=== PATIENT | female | born 1995 | race Caucasian/White ===

== ENCOUNTER 2018-04-30 14:05 | Outpatient (CLI) | payer SELFPAY ==
[2018-04-30 15:28] LABS: HCG Quant, Pregnancy 35 mIU/mL (1-3)
[2018-05-02 09:43] LABS: Prolactin 11.7 ng/ml
[2018-05-02 13:04] LABS: TSH, Sensitive 1.6 mIU/L (0.3-4.2)
== END 2018-04-30 14:25 ==
PROVIDERS: Visit Provider Obstetrics & Gynecology
DX: N91.5 Oligomenorrhea, unspecified (principal)
CPT/HCPCS: 36415; 84146; 84443; 84702

== ENCOUNTER 2018-05-06 11:55 | Outpatient (CLI) | payer SELFPAY ==
[2018-05-06 13:07] LABS: HCG Quant, Pregnancy 736 mIU/mL (1-3)
== END 2018-05-06 12:15 ==
PROVIDERS: PCP Family Medicine; Visit Provider Obstetrics & Gynecology
DX: N91.5 Oligomenorrhea, unspecified (principal)
CPT/HCPCS: 36415; 84702

== ENCOUNTER 2018-06-17 15:42 | Outpatient (REF) | payer SELFPAY ==
[2018-06-17 17:20] LABS: *AMPHETAMINES SCREEN URINE Negative (Negative); *BARBITURATES SCREEN URINE Negative (Negative); *BENZODIAZEPINES SCREEN URINE Negative (Negative); Cannabinoids THC Negative (Negative); Cocaine Screen,Urine Negative (Negative); METHADONE URINE SCREEN Negative (Negative); OPIATES URINE SCREEN Negative (Negative)
[2018-06-17 17:21] LABS: Tricyclic Antidepressants Negative (Negative)
[2018-06-21 11:57] LABS: Buprenorphine Negative; Norbuprenorphine Negative
== END 2018-06-17 16:02 ==
LOC: LBN 15:42
PROVIDERS: PCP Family Medicine; Visit Provider Advanced Practice Midwife
DX: Z34.91 Encounter for supervision of normal pregnancy, unspecified, first trimester (principal)
CPT/HCPCS: 80307; 87086

== ENCOUNTER 2018-07-15 14:11 | Outpatient (REF) | payer SELFPAY ==
[2018-07-16 15:01] LABS: Chlamydia Result Negative; GC Result Negative; Specimen Description URINE
== END 2018-07-15 14:31 ==
LOC: LBN 14:11
PROVIDERS: PCP Family Medicine; Visit Provider Advanced Practice Midwife
DX: Z34.91 Encounter for supervision of normal pregnancy, unspecified, first trimester (principal); Z11.3 Encounter for screening for infections with a predominantly sexual mode of transmission
CPT/HCPCS: 87491; 87591

== ENCOUNTER 2018-07-15 15:02 | Outpatient (CLI) | payer SELFPAY ==
[2018-07-15 15:29] LABS: Abs Immature Grans 0.03 k/cumm (0.0-0.09); Absolute Basophil Count 0.02 k/cumm (0.0-0.2); Absolute Eosinophil Count 0.05 k/cumm (0.0-0.7); Absolute Lymphocyte Count 1.94 k/cumm (1.2-3.4); Absolute Monocyte Count 0.81 k/cumm (0.11-0.7); Absolute Neutrophil Count 6.83 k/cumm (1.2-6.7); Basophils % 0.2; Eosinophils % 0.5; HCT 34.7 % (36.0-46.0); HGB 11.9 g/dL (12.0-15.5); Immature Grans % 0.3; Mean Corp. HGB Concentration 34.3 g/dL (32.0-36.0); Mean Corpuscular Hemoglobin 31.2 pg (27.0-33.0); Mean Corpuscular Volume 91.1 fL (80-95); Mean Platelet Volume 9.4 fL (8.0-11.0); Monocytes % 8.4; Neutrophils % 70.6; Platelet Count 342 x1000/uL (130-400); RBC 3.81 m/cumm (4.00-5.20); RBC Distribution Width 12.1 % (11.7-14.6); White Blood Cell Count 9.68 k/cumm (4.4-10.8)
[2018-07-15 15:57] LABS: Glucose,1 Hr (Glucola) 85 mg/dL (80-140)
[2018-07-17 09:36] LABS: Hepatitis B Surface Ag Negative (NEGAT)
[2018-07-17 09:51] LABS: HIV-1/2 Ag & Ab Screen Negative (NEGAT)
[2018-07-17 10:14] LABS: Hepatitis C Ab w Rflx HCV PCR Negative (NEGAT)
[2018-07-17 12:03] LABS: Syphilis Serology (RPR) Negative (Negative)
[2018-07-17 12:44] LABS: Rubella IgG Ab (UVM) Positive
[2018-07-17 13:12] LABS: Varicella IgG Antibody Equivocal
== END 2018-07-15 15:22 ==
PROVIDERS: PCP Family Medicine; Visit Provider Advanced Practice Midwife
DX: Z34.91 Encounter for supervision of normal pregnancy, unspecified, first trimester (principal); Z11.4 Encounter for screening for human immunodeficiency virus [HIV]; Z11.59 Encounter for screening for other viral diseases; Z01.84 Encounter for antibody response examination
CPT/HCPCS: 36415; 80055; 82950; 86787; 86803; 86850; 86900; 86901; 87340; 87389; 86592; 86762

== ENCOUNTER 2018-08-12 01:41 | Outpatient (CLI) | payer SELFPAY ==
--- NOTE | 2018-08-12 14:11 | DI.US_ITS ---
Many abnormalities cannot be diagnosed. A normal exam does not exclude a congenital anomaly. Radiology No. LMP: Exam Date: 08/12/18 [facility] wks days on EDC ([facility]) 01/12/19 Confirmed: HISTORY: SURVEY, Z34.90 PREDICTED GESTATIONAL AGE NUMBER 18.1 weeks with a range of 17.1 week to 19.1 weeks. 1 Determined by__[id number]___LMP___HISTORY Info. pertaining to PER PATIENT fetus # PLACENTA PRESENTATION Grade I Cephalic___ Anterior_X__Posterior___ Breech____ Right Left Transverse(head right___ Fundal___Low-lying___Previa___ Transverse(head left___ Varying___X___ BIOMETRY AMNIOTIC FLUID BPD: 41 mm 18.4 weeks Normal HC: 156 mm 18.4 weeks AC: 142 mm 18.4 weeks FL: 29 mm 18.6 weeks AMNIOTIC FLUID INDEX >26 WK CRL: mm weeks Cisterna Magna: 5 mm CI: 78 RUQ: LUQ Cerebellum: 1.96 cm EFW: 277 grams 95th Percentile RLQ: LLQ Total: cms Composite AGE= 18.6 wks EDC by US___01/07/19 BIOPHYSICAL PROFILE ANATOMY IDENTIFIED SCORE 0/2 Heart: 4-Chamber__X_Rate:BPM___155__ LVOT: X____ RVOT:____X____ Amniotic Fluid(>2cms)____ Stomach: X__ Kidneys:____X___ Respirations (>30 secs) Bladder: X___ Post. Fossa:__X Body Flex/Extension 3 vessel cord:___X____Ventricles:____X cord insertion:___X__ Lips:_X___ Extremity Flex/Extension spinal morphology:____X____Nose:X Total Score= Palate: X_ NS=not seen Routine examination was performed. There is a single living intrauterine gestation. Estimated sonographic age is 18 weeks 6 days. The fetus was in various positions. heart rate is 155 beats per minute. The AP diameter of the left renal pelvis is 4.1 mm. The right renal pelvis is less than 4 mm. in AP diameter. No other abnormalities are appreciated. The placenta is anterior without evidence of previous. The amniotic fluid visually appears within normal limits. IMPRESSION: Single living intrauterine gestation. Sonographic age is 18 weeks 6 days The renal pelvic diameter is 4.1 mm. Follow up is suggested for re-evaluation of the kidneys in 5-7 weeks.
== END 2018-08-12 02:01 ==
PROVIDERS: PCP Family Medicine; Visit Provider Advanced Practice Midwife
DX: Z34.92 Encounter for supervision of normal pregnancy, unspecified, second trimester (principal)
CPT/HCPCS: 76805

== ENCOUNTER 2018-10-14 00:20 | Outpatient (CLI) | payer SELFPAY ==
--- NOTE | 2018-10-14 10:52 | DI.US_ITS ---
Predicted Gestational Age: Indication/History:PREVIOUS KIDNEY ASYMMETRY 27.1 Wks Range: 26.1 to 28.1 Prior US done on: Determined by: First US LMP History EDC by prior US: 01/12/19 For multiple gestations: Baby PLACENTA: Grade: I-II Location: Anterior X Posterior PRESENTATION: RT LT X LOW LYING PREVIA Cephalic X Trans (Head RT LT ) Varied Breech BIOMETRY: Anatomy Identified: BPD: mm wks 4 chamber Heart Heart Rate 168 BPM HC: mm wks LVOT Post Fossa AC: mm wks RVOT Ventricles FL: mm wks Stomach Nose Bladder Lips Cisterna Magna: mm CI: Kidneys X Palate Cerebellum: mm 3 vessel cord Spine EFW: grms % Cord Insertion NS= not seen Composite Age (US) wks Many abnormalities cannot be diagnosed. A normal exam does not exclude congenital abnormality. EDC by US Amniotic Fluid Index: Normal COMMENTS: RUQ: LUQ: RLQ: LLQ: Total: cm Biophysical Profile: Score 0/2 KOKO (>2cm) Respirations (>30 sec) Body flexion/extension Extremity flexion/extension TOTAL SCORE Limited OB ultrasound was performed. The exam is follow up from 08/12/18 to evaluate dilatation of the renal collecting systems. There is no evidence of dilatation of the collecting systems on the current exam. The AP dimension of the right renal pelvis is 3 mm. and the dimension of the renal pelvis on the left is 4 mm. There is no perinephric collection. The bladder is unremarkable. The amniotic fluid index appears visually normal. IMPRESSION: No evidence of hydronephrosis.
== END 2018-10-14 00:40 ==
PROVIDERS: PCP Family Medicine; Visit Provider Advanced Practice Midwife
DX: Z34.90 Encounter for supervision of normal pregnancy, unspecified, unspecified trimester (principal)
CPT/HCPCS: 76815

== ENCOUNTER 2018-10-30 13:00 | Outpatient (CLI) | payer MEDICAID, SELFPAY ==
[2018-10-30 13:03] LABS: HCT 35.4 % (36.0-46.0); HGB 12.1 g/dL (12.0-15.5); Mean Corp. HGB Concentration 34.2 g/dL (32.0-36.0); Mean Corpuscular Hemoglobin 31.3 pg (27.0-33.0); Mean Corpuscular Volume 91.7 fL (80-95); Mean Platelet Volume 9.5 fL (8.0-11.0); Platelet Count 352 x1000/uL (130-400); RBC 3.86 m/cumm (4.00-5.20); RBC Distribution Width 12.2 % (11.7-14.6); White Blood Cell Count 11.75 k/cumm (4.4-10.8)
[2018-10-30 13:11] LABS: Glucose,1 Hr (Glucola) 114 mg/dL (80-140)
== END 2018-10-30 13:20 ==
PROVIDERS: PCP Family Medicine; Visit Provider Advanced Practice Midwife
DX: Z34.93 Encounter for supervision of normal pregnancy, unspecified, third trimester (principal)
CPT/HCPCS: 36415; 82950; 85027

== ENCOUNTER 2018-12-18 16:03 | Outpatient (REF) | payer MEDICAID, SELFPAY ==
[2018-12-18 19:50] LABS: *AMPHETAMINES SCREEN URINE Negative (Negative); *BARBITURATES SCREEN URINE Negative (Negative); *BENZODIAZEPINES SCREEN URINE Negative (Negative); Cannabinoids THC Negative (Negative); Cocaine Screen,Urine Negative (Negative); METHADONE URINE SCREEN Negative (Negative); OPIATES URINE SCREEN Negative (Negative)
[2018-12-18 19:57] LABS: Tricyclic Antidepressants Negative (Negative)
[2018-12-25 09:36] LABS: Buprenorphine Negative; Norbuprenorphine Negative
== END 2018-12-18 16:23 ==
LOC: LBN 16:03
PROVIDERS: PCP Family Medicine; Visit Provider Advanced Practice Midwife
DX: Z34.93 Encounter for supervision of normal pregnancy, unspecified, third trimester (principal); Z36.85 Encounter for antenatal screening for Streptococcus B
CPT/HCPCS: 80307; 87081

== ENCOUNTER 2019-01-02 14:44 | Outpatient (CLI) | payer MEDICAID, SELFPAY ==
[2019-01-02 15:20] LABS: HGB 11.6 g/dL (12.0-15.5); Mean Corp. HGB Concentration 34.1 g/dL (32.0-36.0); Mean Corpuscular Hemoglobin 31.3 pg (27.0-33.0); Mean Corpuscular Volume 91.6 fL (80-95); Mean Platelet Volume 10.5 fL (8.0-11.0); Platelet Count 292 x1000/uL (130-400); RBC 3.71 m/cumm (4.00-5.20); RBC Distribution Width 12.9 % (11.7-14.6); White Blood Cell Count 10.92 k/cumm (4.4-10.8)
[2019-01-02 16:24] LABS: PROTEIN 29.2 mg/dL
[2019-01-02 16:31] LABS: COMMENT (LAB VIEW ONLY) 111.02 mg/dL; Prot/Crea Ur Ratio 0.26
[2019-01-02 16:31] LABS: ALT 15 U/L (12-78); AST 11 U/L (15-37); Albumin 2.6 g/dL (3.4-5.0); Alkaline Phosphatase 186 U/L (46-116); Anion Gap 10.2 mmol/L (3-11); BUN 8 mg/dL (7-18); Bilirubin, Total 0.1 mg/dL (0.2-1.0); CO2 22.8 mmol/L (21.0-32.0); CREATININE 0.63 mg/dL (0.55-1.02); Calcium 9.2 mg/dL (8.5-10.1); Chloride 105 mmol/L (98-107); Glucose 75 mg/dL (70-100); Sodium 138 mmol/L (136-145); Total Protein 6.2 g/dL (6.4-8.2); Uric Acid 5.9 mg/dL (2.6-6.0)
[2019-01-03 14:13] LABS: Chlamydia Result Negative; GC Result Negative; Specimen Description URINE
== END 2019-01-02 15:04 ==
PROVIDERS: PCP Family Medicine; Visit Provider Advanced Practice Midwife
DX: Z34.90 Encounter for supervision of normal pregnancy, unspecified, unspecified trimester (principal); O14.90 Unspecified pre-eclampsia, unspecified trimester; Z11.3 Encounter for screening for infections with a predominantly sexual mode of transmission
CPT/HCPCS: 36415; 80053; 85027; 87491; 87591; 82565; 84156; 84550

== ENCOUNTER 2019-01-06 11:47 | Observation (INO) | payer MEDICAID, SELFPAY ==
[2019-01-06 12:31] LABS: HCT 34.7 % (36.0-46.0); HGB 11.8 g/dL (12.0-15.5); Mean Corpuscular Hemoglobin 31.4 pg (27.0-33.0); Mean Corpuscular Volume 92.3 fL (80-95); Mean Platelet Volume 10.9 fL (8.0-11.0); Platelet Count 269 x1000/uL (130-400); RBC 3.76 m/cumm (4.00-5.20); RBC Distribution Width 13.1 % (11.7-14.6); White Blood Cell Count 9.21 k/cumm (4.4-10.8)
[2019-01-06 12:49] LABS: PROTEIN 31.8 mg/dL
[2019-01-06 12:54] LABS: ALT 13 U/L (12-78); AST 8 U/L (15-37); Albumin 2.2 g/dL (3.4-5.0); Alkaline Phosphatase 170 U/L (46-116); Anion Gap 8.9 mmol/L (3-11); BUN 13 mg/dL (7-18); Bilirubin, Total 0.1 mg/dL (0.2-1.0); CO2 24.1 mmol/L (21.0-32.0); CREATININE 0.73 mg/dL (0.55-1.02); Calcium 8.7 mg/dL (8.5-10.1); Chloride 106 mmol/L (98-107); Glucose 83 mg/dL (70-100); Sodium 139 mmol/L (136-145); Total Protein 6.1 g/dL (6.4-8.2); Uric Acid 5.9 mg/dL (2.6-6.0)
[2019-01-06 13:14] LABS: COMMENT (LAB VIEW ONLY) 94.42 mg/dL; Prot/Crea Ur Ratio 0.33
== END 2019-01-06 12:35 | disposition home or self-care (01) ==
LOC: OBS 13:43
PROVIDERS: Admitting Provider Advanced Practice Midwife; PCP Family Medicine; Visit Provider Advanced Practice Midwife
DX: Z3A.39 39 weeks gestation of pregnancy; O26.893 Other specified pregnancy related conditions, third trimester; R03.0 Elevated blood-pressure reading, without diagnosis of hypertension
CPT/HCPCS: 36415; 76815; 80053; 85027; 99211; 59025; 76819; 82565; 84156; 84550; G0378

== ENCOUNTER 2019-01-06 13:40 | Outpatient (CLI) | payer MEDICAID, SELFPAY ==
--- NOTE | 2019-01-06 14:45 | DI.US_ITS ---
Predicted Gestational Age: Indication/History: ELEVATED BLOOD PRESSURE, Z34.90 39.1 Wks Range: 38.1 to 40.1 Prior US done on: Determined by: First US LMP History EDC by prior US: 01/12/19 For multiple gestations: Baby PLACENTA: Grade: II-III Location: Anterior X Posterior PRESENTATION: RT LT LOW LYING PREVIA Cephalic X Trans (Head RT LT ) Varied Breech BIOMETRY: Anatomy Identified: BPD: mm wks 4 chamber Heart Heart Rate 140 BPM HC: mm wks LVOT Post Fossa AC: mm wks RVOT Ventricles FL: mm wks Stomach Nose Bladder Lips Cisterna Magna: mm CI: Kidneys Palate Cerebellum: mm 3 vessel cord Spine EFW: grms % Cord Insertion NS= not seen Composite Age (US) wks Many abnormalities cannot be diagnosed. A normal exam does not exclude congenital abnormality. EDC by US Amniotic Fluid Index: [place] Normal Polyhydramnios COMMENTS: RUQ: LUQ: RLQ: LLQ: Total: cm Biophysical Profile: Score 0/2 KOKO (>2cm) ____2/2____ Respirations (>30 sec) ____2/2___ Body flexion/extension ___ 0/2 Extremity flexion/extension ____0/2____ TOTAL SCORE __4/8____ The fetus is in cephalic position. The placenta is anterior. Biophysical profile score is 4 out of 8. There was no body flexion or extension or extremity flexion and extension during the exam.
== END 2019-01-06 14:00 ==
PROVIDERS: PCP Family Medicine; Visit Provider Advanced Practice Midwife
DX: R03.0 Elevated blood-pressure reading, without diagnosis of hypertension (principal); Z34.93 Encounter for supervision of normal pregnancy, unspecified, third trimester; Z36.89 Encounter for other specified antenatal screening
CPT/HCPCS: 76815; 76819

== ENCOUNTER 2019-01-06 20:01 | Inpatient (IN) | payer MEDICAID, SELFPAY ==
[2019-01-06 20:36] LABS: HGB 12.1 g/dL (12.0-15.5); Mean Corp. HGB Concentration 34.6 g/dL (32.0-36.0); Mean Corpuscular Hemoglobin 31.6 pg (27.0-33.0); Mean Corpuscular Volume 91.4 fL (80-95); Mean Platelet Volume 10.7 fL (8.0-11.0); Platelet Count 299 x1000/uL (130-400); RBC 3.83 m/cumm (4.00-5.20); RBC Distribution Width 12.9 % (11.7-14.6); White Blood Cell Count 11.45 k/cumm (4.4-10.8)
[2019-01-06] MEDS: Dinoprostone-CERVICAL 10 MG VSUPP VG (22:26)
[2019-01-07] MEDS: Lactated Ringers 1,000 ML 200 ML IV ×2 (14:13→23:40)
[2019-01-07] MEDS: Normal Saline Flush 10 ML SYR IVP ×2 (14:18→17:21)
[2019-01-08] MEDS: Penicillin G POT. 3,000,000 UNITS in Normal Saline 50 ML 100 UNITS IVPB ×4 (05:05→17:00)
[2019-01-08] MEDS: Lactated Ringers 1,000 ML 100 ML IV (07:30)
[2019-01-08 09:00] LABS: HGB 12.3 g/dL (12.0-15.5); Mean Corp. HGB Concentration 34.2 g/dL (32.0-36.0); Mean Corpuscular Hemoglobin 31.3 pg (27.0-33.0); Mean Corpuscular Volume 91.6 fL (80-95); Mean Platelet Volume 10.6 fL (8.0-11.0); Platelet Count 274 x1000/uL (130-400); RBC 3.93 m/cumm (4.00-5.20); RBC Distribution Width 13.1 % (11.7-14.6); White Blood Cell Count 13.62 k/cumm (4.4-10.8)
[2019-01-08 09:17] LABS: ALT 12 U/L (12-78); AST 8 U/L (15-37); Albumin 2.3 g/dL (3.4-5.0); Alkaline Phosphatase 178 U/L (46-116); Anion Gap 10.1 mmol/L (3-11); BUN 11 mg/dL (7-18); Bilirubin, Total 0.2 mg/dL (0.2-1.0); CO2 22.9 mmol/L (21.0-32.0); Calcium 8.6 mg/dL (8.5-10.1); Chloride 104 mmol/L (98-107); Glucose 96 mg/dL (70-100); Potassium 4.2 mmol/L (3.5-5.1); Sodium 137 mmol/L (136-145); Total Protein 6.3 g/dL (6.4-8.2)
[2019-01-08 09:31] LABS: Uric Acid 6.3 mg/dL (2.6-6.0)
[2019-01-08 11:02] LABS: PROTEIN 19.1 mg/dL
[2019-01-08 11:03] LABS: COMMENT (LAB VIEW ONLY) 55.11 mg/dL; Prot/Crea Ur Ratio 0.34
[2019-01-08] MEDS: Lidocaine 1% Pres-Free 5 ML VIAL (17:56)
[2019-01-09 07:38] LABS: HCT 30.2 % (36.0-46.0); HGB 10.1 g/dL (12.0-15.5); Mean Corp. HGB Concentration 33.4 g/dL (32.0-36.0); Mean Corpuscular Hemoglobin 31.2 pg (27.0-33.0); Mean Corpuscular Volume 93.2 fL (80-95); Mean Platelet Volume 10.9 fL (8.0-11.0); Platelet Count 254 x1000/uL (130-400); RBC 3.24 m/cumm (4.00-5.20); RBC Distribution Width 13.4 % (11.7-14.6); White Blood Cell Count 13.67 k/cumm (4.4-10.8)
[2019-01-09] MEDS: Docusate Sodium 100 MG CAP PO (11:58)
[2019-01-09] MEDS: Acetaminophen 325 MG TAB 650 MG PO (11:58)
[2019-01-09] MEDS: Ibuprofen 600 MG TAB PO ×2 (11:58→18:07)
[2019-01-09] MEDS: Polyethylene Glycol 3350 17 GM PACKET PO (21:24)
[2019-01-10] MEDS: Polyethylene Glycol 3350 17 GM PACKET PO (13:43)
[2019-01-10] MEDS: Acetaminophen 325 MG TAB 650 MG PO (19:53)
[2019-01-10] MEDS: Ibuprofen 600 MG TAB PO (19:54)
[2019-01-11 07:52] LABS: Abs Immature Grans 0.08 k/cumm (0.0-0.09); Absolute Basophil Count 0.05 k/cumm (0.0-0.2); Absolute Eosinophil Count 0.24 k/cumm (0.0-0.7); Absolute Lymphocyte Count 2.15 k/cumm (1.2-3.4); Absolute Neutrophil Count 5.36 k/cumm (1.2-6.7); Basophils % 0.6; Eosinophils % 2.8; HCT 33.2 % (36.0-46.0); HGB 10.9 g/dL (12.0-15.5); Immature Grans % 0.9; Lymphocytes % 25.1; Mean Corp. HGB Concentration 32.8 g/dL (32.0-36.0); Mean Corpuscular Hemoglobin 30.9 pg (27.0-33.0); Mean Corpuscular Volume 94.1 fL (80-95); Mean Platelet Volume 9.9 fL (8.0-11.0); Monocytes % 8.2; Neutrophils % 62.4; Platelet Count 320 x1000/uL (130-400); RBC 3.53 m/cumm (4.00-5.20); RBC Distribution Width 13.2 % (11.7-14.6); White Blood Cell Count 8.58 k/cumm (4.4-10.8)
[2019-01-11 08:10] LABS: ALT 27 U/L (12-78); AST 18 U/L (15-37); Albumin 2.5 g/dL (3.4-5.0); Alkaline Phosphatase 130 U/L (46-116); Anion Gap 7.5 mmol/L (3-11); BUN 11 mg/dL (7-18); CO2 27.5 mmol/L (21.0-32.0); Calcium 8.6 mg/dL (8.5-10.1); Chloride 102 mmol/L (98-107); Glucose 87 mg/dL (70-100); Potassium 3.9 mmol/L (3.5-5.1); Sodium 137 mmol/L (136-145); Total Protein 6.5 g/dL (6.4-8.2)
[2019-01-11 08:17] LABS: Bilirubin, Total < 0.1 mg/dL (0.2-1.0)
[2019-01-11 08:38] LABS: Uric Acid 5.4 mg/dL (2.6-6.0)
[2019-01-11] MEDS: Ibuprofen 600 MG TAB PO (17:39)
[2019-01-11] MEDS: Acetaminophen 325 MG TAB 650 MG PO (17:39)
[2019-01-11] MEDS: Polyethylene Glycol 3350 17 GM PACKET PO (17:39)
[2019-01-12] MEDS: Hamamelis Leaf/Glycerin 100 EACH BOX PR (07:45)
== END 2019-01-12 16:00 | disposition home or self-care (01) | DRG 807 ==
PROVIDERS: Advanced Practice Midwife; Admitting Provider Advanced Practice Midwife; PCP Family Medicine; Visit Provider Advanced Practice Midwife
DX: O75.89 Other specified complications of labor and delivery (principal); Z37.0 Single live birth; R03.0 Elevated blood-pressure reading, without diagnosis of hypertension; Z3A.39 39 weeks gestation of pregnancy; O12.04 Gestational edema, complicating childbirth; O99.824 Streptococcus B carrier state complicating childbirth; O77.0 Labor and delivery complicated by meconium in amniotic fluid; O69.82X0 Labor and delivery complicated by other cord entanglement, without compression, not applicable or unspecified; O99.344 Other mental disorders complicating childbirth; F32.9 Major depressive disorder, single episode, unspecified
CPT/HCPCS: 36415; 76815; 80053; 85027; 86850; 86900; 86901; 99211; 59025; 59200; 76819; 82565; 84156; 84550; 85025; G0378; J2540; J3490

== ENCOUNTER 2019-02-20 13:47 | Outpatient (REF) | payer MEDICAID, SELFPAY ==
--- NOTE | 2019-02-20 11:35 | PAPFT_PTH ---
PATIENT: KWADWO CARRILLO LOC: [facility] U#:[id number] AGE/SX: 23/F ROOM: RE02/20/[address]: Patience Timmons CNM : 1995 BED: DIS: 02/20/2019 SPEC #: [id number] RECD: 02/20/19 17:48 STATUS: [facility]ALE REQ #: [id number] ISHA: 02/20/19 11:[address]: Patience Timmons DEPT: [facility] Cytology RECD BY: Susie Anaya ENTERED: 02/20/19 17:48 SP TYPE: PAPFT OTHR DR: Soledad Mendieta Tissues: 1 - CX/ENDOCX FOR PAP SMEARS Procedures: PAP THIN PREP/[facility] Screening Comments: [id number]
== END 2019-02-20 14:07 ==
LOC: LBN 13:47
PROVIDERS: PCP Family Medicine; Visit Provider Advanced Practice Midwife
DX: Z12.4 Encounter for screening for malignant neoplasm of cervix (principal)
CPT/HCPCS: 88142

== ENCOUNTER 2019-12-15 19:40 | Outpatient (REF) | payer MEDICAID, SELFPAY ==
[2019-12-17 14:30] LABS: Chlamydia Result Negative (Negative); GC Result Negative (Negative)
== END 2019-12-15 20:00 ==
LOC: LBN 19:40
PROVIDERS: PCP Family Medicine; Visit Provider Obstetrics & Gynecology Gynecology
DX: Z11.3 Encounter for screening for infections with a predominantly sexual mode of transmission (principal)
CPT/HCPCS: 87491; 87591